=== PATIENT | female | born 1970 | race African-American/Black ===

== ENCOUNTER 2016-09-06 02:37 | Emergency (ER) ==
[2016-09-06 02:43] VITALS: BP 167/85
[2016-09-06] MEDS ORDERED: MOTRIN PO ONE (02:53)
[2016-09-06] MEDS ORDERED: AUGMENTIN PO ONE (02:53)
[2016-09-06] MEDS ORDERED: BOOSTRIX VACCINE IM ONE (02:53)
[2016-09-06] MEDS ORDERED: NORCO-7.5 PO ONE (02:53)
--- NOTE | 2016-09-06 02:59 | PROVIDER DOCUMENTATION ---
HPI-Rash/Wound/ReCheck - General Source: patient, family - History of Present Illness-Dermatology Location: reports: lower extremity (L calf) Severity: reports: mild Onset/Duration: reports: 4-6 hours ago Timing: reports: still present, improving Context/Associated Symptoms: reports: unknown bite/sting (dog bite), abrasion. denies: insect bite/sting, tick bite, spider bite, abscess, laceration, numbness , sore throat Exposure: reports: other (dog bite) Locality of Occurance: Other (friend's home) <Lee Frey - Last Filed: 09/06/16 02:53> <Moreno Blanco - Last Filed: 09/06/16 03:35> - General Chief Complaint: Animal Bite Stated Complaint: DOG BITE Time Seen by Provider: 09/06/16 02:47 Allergies/Adverse Reactions: Allergies Allergy/AdvReac Type Severity Reaction Status Date / Time No Known Allergies Allergy Verified 09/06/16 02:43 Home Medications: Home Medication List Medication Instructions Recorded Confirmed Last Taken Type Amoxicillin/Potassium Clav 1 each PO TID #20 tablet 09/06/16 Unknown Rx [Augmentin 875-125 Tablet] Hydrocodone/Acetaminophen [[place] 1 each PO Q4-6H PRN PRN #12 tablet 09/06/16 Unknown Rx 5-325 Tablet] Ibuprofen [Motrin] 800 mg PO Q8H PRN PRN #30 tablet 09/06/16 Unknown Rx - History of Present Illness-Dermatology Nature of Presenting Problem: Pt is a 46 yof who presents to ER with CC of dog bite that occurred at approximately 2130. Pt reports that she was walking out of her friend's front door when friend's dog lashed out and bit pt's L calf. On exam, pt has 1 puncture wound 1cm in diameter, and 1 abrasion on her L calf. Pt's family sterilized pt's leg with iodine, applied an ice pack, and cleaned with gauze. Pt denies taking any pre arrival medicine for her pain. (Lee Frey) Review of Systems - Adult - REVIEW OF SYSTEMS - ADULT Constitutional: denies: chills, fever, fatique, night sweats Eyes: reports: no symptoms reported Ears, Nose, Mouth & Throat: reports: no symptoms reported Cardiovascular: reports: no symptoms reported Respiratory: reports: no symptoms reported Gastrointestinal: reports: no symptoms reported Genitourinary: reports: no symptoms reported Musculoskeletal: reports: muscle aches, muscle weakness. denies: bone pain, back pain, frequent leg cramps, joint pain, joint swelling, neck pain Integumentary: reports: skin sores/ulcer (1 puncture wound, 1cm; 1 abrasion on LLE (calf)). denies: hives, hair loss, itching, mole changes, nail changes, rash, skin thickening Neurological: reports: no symptoms reported Psychiatric: reports: no symptoms reported Endocrine: reports: no symptoms reported Hematologic/Lymphatic: reports: no symptoms reported Allergic/Immunologic: reports: no symptoms reported All Other Systems: Reviewed and Negative <Lee Frey - Last Filed: 09/06/16 02:53> Past History - Adult - PAST MEDICAL HISTORY-ADULT Review of Records: reports: Nursing Assessment Review, Medications Reviewed Neurological: reports: Seizures/Epilepsy - PRIOR SURGERIES/PROCEDURES Surgical/Procedure History: reports: cholecystectomy, BTL - IMMUNIZATION STATUS Childhood Immunizations: See Nurse Assessment Flu Vaccine: See Nurse Assessment <Lee Frey - Last Filed: 09/06/16 02:53> Physical Exam-General - PHYSICAL EXAM-ADULT Initial Vital Signs Reviewed: Yes - CONSTITUTIONAL General Appearance: appears well, alert, moderate distress. negative: severe distress, cachetic, obese, anxious, lethargic, slow to respond, obtunded, combative - MUSCULOSKELETAL Extremity: normal range of motion, normal gait, tenderness (LLE (calf)). negative: non-tender, erythema, inflammation, swelling - SKIN Integumentary: abrasion(s) (LLE (calf)), laceration(s) (1cm puncture wound on LLE (calf)), tenderness. negative: diaphoresis, ecchymosis, erythema, purpura, rash, swelling, warm - NEUROLOGIC Neurologic: grossly normal, no motor/sensory deficits - PSYCHIATRIC Psych/Mental Status: normal mood/affect, normal thought content, normal thought process, oriented x 3 <Lee Frey - Last Filed: 09/06/16 02:53> Progress <Lee Frey - Last Filed: 09/06/16 02:53> <Moreno Blanco - Last Filed: 09/06/16 03:35> - PLAN OF CARE/RESULTS Progress/Plan/Lab Results: POC: antibiotic(augmentin);Pain rx(Motrin and norco) (Lee Frey) Departure <Lee Frey - Last Filed: 09/06/16 02:53> - Departure Time of Disposition Order: 03:35 Certified Medical Emergency: Emergent <Moreno Blanco - Last Filed: 09/06/16 03:35> - Departure DIAGNOSIS: Dog bite Qualifiers: Encounter type: initial encounter Qualified Code(s): W54.0XXA - Bitten by dog, initial encounter Disposition: HOME 01 Condition: Good Additional Instructions: ED Follow Up Instructions: You have been treated by a care provider in the Emergency Department. These instructions are being provided to you so you can have an understanding of how to care for yourself upon discharge. Upon discharge from the Emergency Department, you are responsible for making arrangements for follow-up care by a physician of your choice. Take all prescribed medications as directed. Return to the Emergency Department immediately for any new or worsening symptoms. You may call the Physician Referral phone number at [phone] to obtain a list of Physicians who are taking new patients. Prescriptions: Amoxicillin/Potassium Clav [Augmentin 875-125 Tablet] 1 each PO TID #20 tablet Ibuprofen [Motrin] 800 mg PO Q8H PRN PRN #30 tablet PRN Reason: Pain Hydrocodone/Acetaminophen [[place] 5-325 Tablet] 1 each PO Q4-6H PRN PRN #12 tablet PRN Reason: Pain Referrals: Karolyn Ojeda [Primary Care Provider] - Instructions: Animal Bite, Ltnd-gd-Cait Attestation - Scribe Verification/Attestation Scribe:: Lee Frey Acting as Scribe for:: Moreno Blanco Scribe documention review:: This chart was documented by a scribe and accurately reflects the service the provider performed and the decisions made by the provider. <Lee Frey - Last Filed: 09/06/16 02:53> Physician Attestation
== END 2016-09-06 03:28 | disposition home or self-care (01) ==
LOC: ED 02:37
DX: S81.832A Puncture wound without foreign body, left lower leg, initial encounter (principal); S80.812A Abrasion, left lower leg, initial encounter; W54.0XXA Bitten by dog, initial encounter; Z23 Encounter for immunization; M79.1 Myalgia; M62.81 Muscle weakness (generalized)
CPT/HCPCS: 90715